=== PATIENT | female | born 1960 | race Caucasian/White ===

== ENCOUNTER → 2016-06-09 | Outpatient (CLI) | payer BC ==
--- NOTE | 2016-06-09 13:58 | REP ---
HIDA SCAN: Following the intravenous administration of 5.9 millicuries technetium 99m mebrofenin, multiple images of the right upper quadrant are performed for 60 minutes. Breast artifact is seen overlying the right lob of the liver, there is biliary to bowel transit seen at about 30 minutes post injection. No gallbladder is visualized at 60 minutes post injection. Delayed 3-hour images show a small amount of activity in the right upper quadrant presumably in the gallbladder. IMPRESSION: Small amount of activity in the region of the gallbladder on 3-hour delayed images. I do not have a history that there has been a cholecystectomy and the findings are most consistent with chronic cholecystitis. There is free biliary to bowel transit of radiotracer by 30 minutes post injection. Signed by Anderson Jones MD 06/09/2016 03:23 P
== END | disposition home or self-care (01) ==
LOC: M RAD 09:31
PROVIDERS: ATTEND Surgery
DX: K80.50 Calculus of bile duct without cholangitis or cholecystitis without obstruction (principal)
CPT/HCPCS: 78226; A9537